=== PATIENT | female | born 1955 | race Caucasian/White ===

== ENCOUNTER → 2023-05-04 10:56 | Outpatient (REF) | payer MEDICARE, OTHER, SELFPAY | LOC: HWCARD 10:56 | PROVIDERS: ATTENDING PHYSICIAN Physical Medicine & Rehabilitation; FAMILY PHYSICIAN Internal Medicine | DX: Z01.818 Encounter for other preprocedural examination (principal) | CPT/HCPCS: 93005 ==

== ENCOUNTER → 2023-06-04 15:44 | Outpatient (REF) | payer MEDICARE, OTHER, SELFPAY | LOC: HWRAD 15:44 | PROVIDERS: ATTENDING PHYSICIAN Specialist; FAMILY PHYSICIAN Internal Medicine | DX: N20.0 Calculus of kidney (principal) | CPT/HCPCS: 74176 ==

== ENCOUNTER 2023-06-12 02:15 | Emergency (ER) | payer MEDICARE, OTHER, SELFPAY ==
[2023-06-12 02:19] VITALS: BP 156/70
[2023-06-12 02:38] VITALS: BMI 20.6
--- NOTE | 2023-06-12 02:40 | ED.GENMED ---
History of Present Illness
<TALA Kim - Last Filed: 06/12/23 02:57>
General
Chief Complaint: Musculo-Skeletal Complaint
Source: patient
Exam Limitations: none
Time Seen by Provider: 06/12/23 02:24
Nursing documentation reviewed up to this point in time: agreed with
Travel History
Have you had any contact with someone who has COVID-19?: No
Do you have any symptoms of coronavirus? Fever > 100 degrees, chills, cough, shortness of breath, sore throat, loss of taste or smell, muscle aches, or headache?: No
History of Present Illness
History of Present Illness:
patient is a 67 y/o female with PMH of lower back pain presenting for neck stiffness. Patient states she woke up tonight with neck stiffness. Patient states that when she woke up she also noticed a 'bump' on the back of her neck. Patient states the
bump feels like a 'pressure' but is not painful, burning, or pruritic. Patient denies any trauma to the area. Patient denies N/V/D/C, SOB, CP, VIRAMONTES, fever. Patient admits to associated chills. Patient admits to associated weakness and dizziness.
Patient describes the dizziness as feeling unsteady. Patient denies any previous episode like this in her past. Patient admits that she is currently passing a kidney stone and was recently started on tamsulosin. Patient admits that she received a
steroid injection in her lumbar spine on 05/29. patient states at the time of injection the dural was punctured causing a postdural puncture headache resulting in patient getting a blood patch 1 wk ago.
Past History
<TALA Kim - Last Filed: 06/12/23 02:57>
Past History
ED Past Medical History: None
ED Past Surgical History: ; Negative Cardiac
Social History
Tobacco: Non-smoker
Alcohol: Occasional
Drug: None
Personal:
Living: with family
Employment: Employed
Family History
Family History: Other (Noncontributory)
Review of Systems
<TALA Kim - Last Filed: 06/12/23 02:57>
Review of Systems
Constitutional: Reports chills
Musculoskeletal: Reports neck pain
Skin: Reports other (bump on back of neck)
Neurological: Reports dizzy and weakness
Phy Exam
<TALA Kim - Last Filed: 06/12/23 02:57>
General Physical Exam
General Presentation: well appearing and no apparent distress
General Skin: warm and dry
General Habitus: normal
General Mental: alert
General Hydration: appears well hydrated
ENT Exam
ENT Exam: EOMI, pharynx normal, neck supple and normocephalic
Eye Exam
Eye Exam: PERRL, cornea clear and conjunctiva normal
Cardiovascular Exam
Cardiovascular Exam: regular rate/rhythm, no edema, no murmur and normal peripheral pulses
Pulmonary Exam
Pulmonary Exam: lungs clear, no respiratory distress, no rales, no crackles, no rhonchi, no stridor, no wheezing and no cough
Gastrointestinal Exam
Gastrointestinal Exam: normal bowel sounds, non tender, soft, no organomegaly, no pulsatile mass and non distended
Neurological Exam
Neurological Exam: alert, oriented x3, no motor deficits and speech normal
Musculoskeletal Exam
Musculoskeletal Exam: full ROM, neck pain and no edema
Skin Exam
Skin Exam: other (erythematous papule located over cervical spine)
Psychiatric Exam
Psychiatric Exam: normal mood/affect
Course
<TLAA Kim - Last Filed: 06/12/23 02:57>
Orders/Labs/Results
Orders:
Orders
06/12/23 02:54
Acetaminophen [Tylenol] 650 mg PO NOW STA
Ketorolac [Toradol] 30 mg IV NOW STA
06/12/23 03:05
CT Head W/o Iv Contrast Urgent
Comment:
Reason For Exam: weaekness
06/12/23 03:08
Complete Blood Count/With Diff Urgent
Comprehensive Metabolic Panel Urgent
Lyme Progressive Urgent
06/12/23 04:32
Cephalexin Monohydrate [Keflex] 500 mg PO NOW STA
Abnormal Lab Results
06/12/23
03:08
RBC 4.10 L 10^6/uL
(4.20-5.40)
Absolute Lymphs (auto) 1.1 L 10^3/uL
(1.2-3.4)
BUN 25 H mg/dl
(7-17)
Glucose 102 H mg/dl
(70-99)
06/12/23 03:08
06/12/23 03:08
Vital Signs
Initial and Last Documented VS:
Initial Vital Signs
Temp Pulse Resp BP Pulse Ox
97.7 F 76 18 156/70 100
06/12/23 02:19 06/12/23 02:19 06/12/23 02:19 06/12/23 02:19 06/12/23 02:19
Last Documented Vital Signs
Temp Pulse Resp BP Pulse Ox
97.7 F 76 18 156/70 100
06/12/23 02:19 06/12/23 02:19 06/12/23 02:19 06/12/23 02:19 06/12/23 02:19
<Tyrell Vieira, - Last Filed: 06/12/23 04:34>
Orders/Labs/Results
Orders:
Orders
06/12/23 02:54
Acetaminophen [Tylenol] 650 mg PO NOW STA
Ketorolac [Toradol] 30 mg IV NOW STA
06/12/23 03:05
CT Head W/o Iv Contrast Urgent
Comment:
Reason For Exam: weaekness
06/12/23 03:08
Complete Blood Count/With Diff Urgent
Comprehensive Metabolic Panel Urgent
Lyme Progressive Urgent
06/12/23 04:32
Cephalexin Monohydrate [Keflex] 500 mg PO NOW STA
Abnormal Lab Results
06/12/23
03:08
RBC 4.10 L 10^6/uL
(4.20-5.40)
Absolute Lymphs (auto) 1.1 L 10^3/uL
(1.2-3.4)
BUN 25 H mg/dl
(7-17)
Glucose 102 H mg/dl
(70-99)
06/12/23 03:08
06/12/23 03:08
Vital Signs
Initial and Last Documented VS:
Initial Vital Signs
Temp Pulse Resp BP Pulse Ox
97.7 F 76 18 156/70 100
06/12/23 02:19 06/12/23 02:19 06/12/23 02:19 06/12/23 02:19 06/12/23 02:19
Last Documented Vital Signs
Temp Pulse Resp BP Pulse Ox
97.7 F 76 18 156/70 100
06/12/23 02:19 06/12/23 02:19 06/12/23 02:19 06/12/23 02:19 06/12/23 02:19
<TALA Kim - Last Filed: 06/12/23 02:57>
MDM/Problems Addressed
Differential Diagnosis Includes:
muscle strain
insect bite
MDM/Problems Addressed:
neck stiffness
<Tyrell Vieira DO - Last Filed: 06/12/23 04:34>
*Critical Care Note
Total Time (30-74mins, 75-104mins- exclusive of procedures): Not Applicable
<Tyrell Vieira DO - Last Filed: 06/12/23 04:34>
Update Note
Update Note:
4:30 AM labs CAT scan noted
ED Attending Note
<ST JulioJENNIE - Last Filed: 06/12/23 02:57>
-
Portions of this chart may have been created with voice recognition software.� Occasional wrong word or��sound alike� substitutions may have occurred due to the inherent limitations of voice recognition software.
<Tyrell Vieira DO - Last Filed: 06/12/23 04:34>
ED Attending Note
Patient seen and examined by attending physician: Yes
I performed the substantive portion of visit, reviewed & personally made and approve the management plan that is documented in note by myself or RAH.: Yes
ED Attending Note:
Seen with student examined independently 67-year-old female lumbar disc disease status post procedure recently had a dural leak status post blood patch tells me she takes no meds, woke up tonight with pain in her neck and swelling in the midline in
her upper neck no insect bites no fevers patient is concerned that this could somehow be related to her procedures last week, on exam she is awake alert and oriented no pain with flexion of the neck no photophobia no rash has a small minimally
tender early pimple versus foreign uncle in her mid upper cervical spine posteriorly
Discharge Plan
Departure
Patient Disposition: Home (Routine Discharge)
Date of Disposition: 06/12/23
Time of Disposition: 04:33
Patient with high blood pressure during this ER visit?: No
Condition: Good
Discharge Problem:
Skin infection
Instructions: Cellulitis (Skin Infection), Adult (DC), Ibuprofen
Prescriptions:
No Action
No Current Medications
0
Referrals:
Michaela Graham MD [Family Provider] - Next open appointment
Activity Restrictions/Additional Instructions:
Warm compresses to your neck
Keflex 4 times a day
Tylenol or ibuprofen for pain
Interventions
Interventions:
*Risk Screen - Suicide Last Done: 06/12/23 02:19
*General Assessment Last Done: 06/12/23 02:38
*Neglect/Abuse Screening Last Done: 06/12/23 02:19
ED- Fall Risk Assessment Last Done: 06/12/23 02:38
*ED COVID-19 Vaccine History Last Done: 06/12/23 02:38
ED-Musculoskeletal Assessment Last Done: 06/12/23 02:38
ED-Skin Assessment Last Done: 06/12/23 02:38
Discharge Date and Time
Print Language: SAMI
[2023-06-12] MEDS: TYLENOL 650 MG PO (03:09)
[2023-06-12] MEDS: TORADOL 30 MG IV (03:09)
[2023-06-12 03:27] LABS: % Basophils 1.2 % (0-2); % Eosinophils 1.2 % (0-6); % Immature Granulocytes 0.4 % (0-0.5); % Lymphocytes 20.7 % (20.5-51.1); % Monocytes 7.4 % (1.7-9.3); % Neutrophils 69.1 % (42.2-75.2); Absolute Basophils 0.1 10^3/uL (0-0.2); Absolute Eosinophils 0.1 10^3/uL (0-0.7); Absolute Lymphocytes 1.1 10^3/uL (1.2-3.4); Absolute Monocytes 0.4 10^3/uL (0.1-0.6); Absolute Neutrophils 3.6 10^3/uL (1.4-6.5); Hematocrit 37.2 % (37.0-47.0); Hemoglobin 12.4 g/dL (12.0-16.0); Mean Corp Hgb Conc. 33.3 g/dL (33.0-37.0); Mean Corpuscular Hgb 30.2 pg (27.0-31.0); Mean Corpuscular Volume 90.7 fL (81.0-99.0); Mean Platelet Volume 8.7 fL (7.4-10.4); Nucleated Red Blood Cells % 0 %; Platelet Count 259 10^3/uL (130-400); Red Cell Dist. Width 12.2 % (11.5-14.5); White Blood Cell Count 5.2 10^3/uL (4.8-10.8)
[2023-06-12 03:43] LABS: ALT (SGPT) < 10 U/L (0-35); AST (SGOT) 22 U/L (14-36); Albumin 4.1 g/dl (3.5-5.0); Alkaline Phosphatase 85 U/L (38-126); Blood Urea Nitrogen 25 mg/dl (7-17); Calcium 9.8 mg/dl (8.4-10.2); Carbon Dioxide 27 mmol/L (22-30); Chloride 107 mmol/L (98-107); Estimated Creatinine Clearance 53 ml/min; Glucose 102 mg/dl (70-99); Sodium 139 mmol/L (135-145); Total Bilirubin 0.4 mg/dl (0.2-1.3); Total Protein 6.6 g/dl (6.3-8.2); eGFR > 60.00
[2023-06-12] MEDS: VIBRAMYCIN 100 MG PO (04:40)
[2023-06-12 04:46] VITALS: BP 126/60
[2023-06-14 15:52] LABS: Lyme Antibody Screen, EIA Negative (Negative)
== END 2023-06-12 04:54 | disposition home or self-care (01) ==
LOC: EMR 02:15
PROVIDERS: EMERGENCY PHYSICIAN Emergency Medicine; FAMILY PHYSICIAN Internal Medicine
DX: L08.9 Local infection of the skin and subcutaneous tissue, unspecified (principal); M54.2 Cervicalgia; R22.1 Localized swelling, mass and lump, neck; R42 Dizziness and giddiness; R53.1 Weakness; R68.83 Chills (without fever); N20.0 Calculus of kidney; Z87.891 Personal history of nicotine dependence; Z91.041 Radiographic dye allergy status; Z91.013 Allergy to seafood
CPT/HCPCS: 99284; 96374; 70450; 80053; 85025; 86618

== ENCOUNTER → 2024-08-05 09:59 | Outpatient (REF) | payer MEDICARE, OTHER, SELFPAY | LOC: HWRAD 09:59 | PROVIDERS: ATTENDING PHYSICIAN Nurse Practitioner Adult Health | DX: Z78.0 Asymptomatic menopausal state (principal); E78.00 Pure hypercholesterolemia, unspecified | CPT/HCPCS: 75571; 77080 ==

== ENCOUNTER → 2025-02-11 08:43 | Outpatient (REF) | payer MEDICARE, OTHER, SELFPAY | LOC: RCS 08:43 | DX: R00.2 Palpitations (principal); R07.89 Other chest pain; R06.02 Shortness of breath | CPT/HCPCS: 93225; 93226 ==

== ENCOUNTER → 2025-02-13 09:02 | Outpatient (REF) | payer MEDICARE, OTHER, SELFPAY | LOC: RAD 09:02 | DX: R00.2 Palpitations (principal); R07.89 Other chest pain; R06.02 Shortness of breath | CPT/HCPCS: 71046 ==